=== PATIENT | female | born 1990 | race Caucasian/White ===

== ENCOUNTER 2022-02-15 11:20 | Outpatient (CLI) | payer SELFPAY ==
[~2022-02-15] VITALS: Ht 170.2 cm; Wt 77.8 kg
[2022-02-15] VITALS (26 sets, daily range): BP systolic 114–171; BP diastolic 59–123
[2022-02-15] MEDS ORDERED: ACET325C5 PO (11:56)
[2022-02-15] MEDS ORDERED: VYVA60CA PO (11:56)
[2022-02-15] MEDS ORDERED: PRENTAB9 PO (11:56)
[2022-02-15] MEDS ORDERED: ZOLO25TA PO (11:56)
[2022-02-15 12:33] LABS: HEMATOCRIT 32.1 % (36.0-47.0); HEMOGLOBIN 10.5 g/dl (12.0-15.5); MEAN CORPUSCULAR HEMOGLOBIN 31.3 pg (27.0-33.0); MEAN CORPUSCULAR HGB CONC 32.7 g/dl (32.0-36.5); MEAN CORPUSCULAR VOLUME 95.5 fl (80.0-96.0); PLATELET COUNT, AUTOMATED 253 10^3/uL (150-450); RED BLOOD COUNT 3.36 10^6/uL (4.00-5.40); WHITE BLOOD COUNT 11.6 10^3/uL (4.0-10.0)
[2022-02-15 12:54] LABS: CREATININE,RANDOM URINE 56.7 MG/DL
[2022-02-15 12:55] LABS: ALT/SGPT 20 U/L (12-78); BILIRUBIN,TOTAL 0.1 MG/DL (0.2-1.0); CREATININE FOR GFR 0.65 MG/DL (0.55-1.30); GLOMERULAR FILTRATION RATE > 60.0 (>60); LDH LACTATE DEHYDROGENASE 168 U/L (84-246)
[2022-02-15 12:57] LABS: RSV AMPLIFICATION NEGATIVE (NEGATIVE)
[2022-02-15] MEDS ORDERED: LABETALOL 200 MG TAB PO ONE (14:40)
[2022-02-15] MEDS ORDERED: zolPIDEM TARTRATE 5 MG TAB PO PRN (15:05)
[2022-02-15] MEDS ORDERED: hydrALAZINE 20MG/ML 1ML VIAL (J0360 PER 20MG) IV ONE (15:25)
[2022-02-15] MEDS ORDERED: LR 1,000 ML IV SCH (15:25)
[2022-02-15] MEDS ORDERED: MAG Sulf (OBGYN) 20GM/500ML 20,000 MG in IV 1 EA IV SCH (15:25)
[2022-02-15] MEDS ORDERED: MAG Sulf (L&D) 4 GM/100 ML 4 GM in IV 1 EA IV ONE (15:25)
[2022-02-15] MEDS: hydrALAZINE 20MG/ML 1ML VIAL (J0360 PER 20MG) IV SCH ×2 (15:45→16:05)
[2022-02-15] MEDS ORDERED: CALCIUM GLUCONATE 1,000 MG in D5W MINI-BAG PLUS 100 ML IV PRN (16:00)
[2022-02-15] MEDS ORDERED: ONDANSETRON 4MG/2ML VIAL IV ONE (17:15)
[2022-02-15] MEDS: BETAMETHASONE SOLUSPAN 6MG/ML 5ML VIAL (J0702 PER 3MG) IM SCH (17:15)
[2022-02-15] MEDS ORDERED: ONDANSETRON 4MG/2ML VIAL IV PRN (17:30)
[2022-02-15] MEDS ORDERED: CALCIUM CARBONATE 500 MG CHEW U/D PO ONE (20:20)
[2022-02-15] MEDS: ONDANSETRON 4MG/2ML VIAL IV PRN (22:03)
[2022-02-16] VITALS (13 sets, daily range): BP systolic 110–133; BP diastolic 55–72
[2022-02-16] MEDS: PROMETHAZINE 25MG/ML 1ML VIAL IV PRN ×2 (01:47→12:40)
[2022-02-16] MEDS ORDERED: AMPHETAMINE/DEXTROAMPHETAMINE 5 MG *ER* CAPSULE (ADDERALL XR) PO SCH (09:00)
[2022-02-16] MEDS ORDERED: FLUoxetine 20MG CAP PO SCH (09:00)
[2022-02-16] MEDS ORDERED: ASPIRIN 81MG ENTERIC TABLET PO SCH (09:00)
[2022-02-16] MEDS ORDERED: CALCIUM CARBONATE 500 MG CHEW U/D PO PRN (09:20)
[2022-02-16] MEDS ORDERED: ACETAMINOPHEN 500 MG TAB PO PRN (11:10)
[2022-02-16] MEDS ORDERED: PROMETHAZINE 25 MG TAB PO ONE (12:40)
[2022-02-16] MEDS: ONDANSETRON 4MG/2ML VIAL IV PRN (12:40)
[2022-02-16] MEDS ORDERED: RIZATRIPTAN BENZOATE 10 MG TAB PO ONE (13:00)
[2022-02-16] MEDS ORDERED: FIORICET TAB PO ONE ×2 (15:40→17:20)
[2022-02-16] MEDS: BETAMETHASONE SOLUSPAN 6MG/ML 5ML VIAL (J0702 PER 3MG) IM SCH (17:14)
== END 2022-02-16 18:34 | disposition home or self-care (01) ==
LOC: M LDO 11:20 → UNDOADMOB 11:21 → M LDI 11:21 → UNDODISOB 02-16 18:34
PROVIDERS: ATTEND Advanced Practice Midwife
DX: O26.893 Other specified pregnancy related conditions, third trimester (principal); R03.0 Elevated blood-pressure reading, without diagnosis of hypertension; Z3A.28 28 weeks gestation of pregnancy; O99.343 Other mental disorders complicating pregnancy, third trimester; F32.A Depression, unspecified; F41.9 Anxiety disorder, unspecified; O99.013 Anemia complicating pregnancy, third trimester; D64.9 Anemia, unspecified; F90.9 Attention-deficit hyperactivity disorder, unspecified type; O99.353 Diseases of the nervous system complicating pregnancy, third trimester; G43.909 Migraine, unspecified, not intractable, without status migrainosus; O99.613 Diseases of the digestive system complicating pregnancy, third trimester; K21.9 Gastro-esophageal reflux disease without esophagitis; Z87.59 Personal history of other complications of pregnancy, childbirth and the puerperium; Z20.822 Contact with and (suspected) exposure to COVID-19; O9A.213 Injury, poisoning and certain other consequences of external causes complicating pregnancy, third trimester; T47.4X5A Adverse effect of other laxatives, initial encounter; Z79.899 Other long term (current) drug therapy; Z88.0 Allergy status to penicillin; Z88.1 Allergy status to other antibiotic agents; Z88.8 Allergy status to other drugs, medicaments and biological substances
CPT/HCPCS: 36415; 59025; 76811; 76819; 76820; 82247; 82565; 82570; 83615; 84156; 84450; 84460; 84550; 85027; 87631; 96361; 96365; 96366; G0378; G0463; J0702; J2405; J2550; J3475

== ENCOUNTER 2022-03-29 08:24 | Inpatient (IN) | payer OTHER, SELFPAY ==
[2022-03-29] VITALS (15 sets, daily range): BP systolic 124–151; BP diastolic 78–94
[~2022-03-29] VITALS: Ht 170.2 cm; Wt 82.9 kg
[~2022-03-29 08:24] MED LIST: ACET325C5 PO; PRENTAB9 PO; VYVA60CA PO; ZOLO25TA PO
[2022-03-29] MEDS ORDERED: FIOR1CAP PO (08:49)
[2022-03-29] MEDS ORDERED: diphenhydrAMINE 25MG CAP PO ONE ×2 (08:55→09:50)
[2022-03-29] MEDS ORDERED: PROZ40CA PO (08:55)
[2022-03-29] MEDS ORDERED: ACETAMINOPHEN TAB 650MG DOSE (2X325MG) PO ONE (08:55)
[2022-03-29] MEDS ORDERED: ONDA-83 PO (08:57)
[2022-03-29] MEDS ORDERED: HOME MED LIST COMPLETE! XX SCH (09:00)
[2022-03-29 09:31] LABS: HEMATOCRIT 28.5 % (36.0-47.0); HEMOGLOBIN 9.4 g/dl (12.0-15.5); MEAN CORPUSCULAR HEMOGLOBIN 30.1 pg (27.0-33.0); MEAN CORPUSCULAR VOLUME 91.3 fl (80.0-96.0); PLATELET COUNT, AUTOMATED 207 10^3/uL (150-450); RED BLOOD COUNT 3.12 10^6/uL (4.00-5.40); WHITE BLOOD COUNT 9.3 10^3/uL (4.0-10.0)
[2022-03-29 09:47] LABS: CREATININE,RANDOM URINE 18.1 MG/DL; TOTAL PROTEIN,RANDOM URINE 8.3 MG/DL (0.0-12.0)
[2022-03-29] MEDS ORDERED: METOCLOPRAMIDE 10MG TAB PO ONE (10:00)
[2022-03-29] MEDS ORDERED: CALCIUM CARBONATE 500 MG CHEW U/D PO ONE (10:00)
[2022-03-29 10:02] LABS: ALBUMIN 2.3 GM/DL (3.2-5.2); ALT/SGPT 17 U/L (12-78); BILIRUBIN,DIRECT < 0.1 MG/DL (0.0-0.2); BILIRUBIN,TOTAL 0.1 MG/DL (0.2-1.0); TOTAL PROTEIN 6.2 GM/DL (6.4-8.2)
[2022-03-29] MEDS ORDERED: RIZATRIPTAN MLT 10 MG TAB PO PRN (11:10)
[2022-03-29] MEDS ORDERED: MAG Sulf (L&D) 4 GM/100 ML 4 GM in IV 1 EA IV ONE (12:00)
[2022-03-29] MEDS ORDERED: LIDOCAINE 1% MDV 20ML VIAL INFIL PRN (12:00)
[2022-03-29] MEDS ORDERED: OXYTOCIN DRIP 30 UNITS in IV 1 EA IV PRN (12:00)
[2022-03-29] MEDS ORDERED: ACETAMINOPHEN TAB 650MG DOSE (2X325MG) PO PRN (12:00)
[2022-03-29] MEDS ORDERED: ceFAZolin SOD 2 GM in IV 1 EA IV ONE (12:00)
[2022-03-29] MEDS ORDERED: CALCIUM GLUCONATE 1,000 MG in D5W MINI-BAG PLUS 100 ML IV PRN (12:00)
[2022-03-29] MEDS ORDERED: CARBOPROST TROMETHAMINE 250 MCG/ML AMP IM PRN (12:00)
[2022-03-29] MEDS ORDERED: TRANEXAMIC ACID INJection 1,000 MG in NS 100 ML IV PRN (12:00)
[2022-03-29] MEDS ORDERED: OXYTOCIN DRIP 30 UNITS in IV 1 EA IV SCH (12:00)
[2022-03-29] MEDS: LR 1,000 ML IV SCH (12:42)
[2022-03-29] MEDS: MAG Sulf (OBGYN) 20GM/500ML 20,000 MG in IV 1 EA IV SCH ×2 (12:42→23:24)
[2022-03-29] MEDS: BETAMETHASONE SOLUSPAN 6MG/ML 5ML VIAL (J0702 PER 3MG) IM SCH (12:42)
[2022-03-29] MEDS ORDERED: miSOPROStol 50MCG 1/2 TABLET PO ONE (14:10)
[2022-03-29] MEDS ORDERED: PROMETHAZINE 25MG/ML 1ML VIAL IM ONE (14:25)
[2022-03-29] MEDS ORDERED: BUTORPHANOL 2 MG/ML INJ (J0595) IV ONE ×2 (14:25→17:45)
[2022-03-29] MEDS ORDERED: PROMETHAZINE 25MG/ML 1ML VIAL IV ONE ×2 (14:35→17:45)
[2022-03-29] MEDS ORDERED: miSOPROStol 25MCG 1/4 TABLET PO SCH (20:00)
[2022-03-29] MEDS ORDERED: zolPIDEM TARTRATE 5 MG TAB PO SCH (21:00)
[2022-03-29] MEDS: ONDANSETRON 4MG/2ML VIAL IV PRN (23:24)
[2022-03-30] VITALS (77 sets, daily range): BP systolic 101–150; BP diastolic 51–84
[2022-03-30] MEDS ORDERED: OXYTOCIN DRIP 30 UNITS in IV 1 EA IV SCH ×2 (00:15→17:00)
[2022-03-30] MEDS ORDERED: FENTANYL 2MCG/ML ROPIVACAINE 0.2% IN 0.9% NACL 100ML IVBAG As Ordered ONE (02:31)
[2022-03-30] MEDS ORDERED: LR 500 ML IV PRN (03:50)
[2022-03-30] MEDS ORDERED: diphenhydrAMINE 50MG/ML VIAL (J1200) IV PRN (03:50)
[2022-03-30] MEDS ORDERED: EPIDURAL/PCA KEYS XX PRN (03:50)
[2022-03-30] MEDS ORDERED: ONDANSETRON 4MG/2ML VIAL IV PRN (03:50)
[2022-03-30] MEDS ORDERED: ePHEDrine SULFATE 25 MG/5 ML(5MG/ML) SYRINGE IVP PRN (03:50)
[2022-03-30] MEDS ORDERED: NALOXONE INJ 0.4MG/1ML VIAL (J2310 PER 1MG) IV PRN (03:50)
[2022-03-30] MEDS: ceFAZolin SOD 1 GM in D5W MINI-BAG PLUS 50 ML IV SCH ×2 (03:59→15:06)
[2022-03-30] MEDS: FENTANYL/ROPIVACAINE/NACL BAG 100 ML EPIDURAL SCH ×2 (04:07→12:45)
[2022-03-30] MEDS: LR 1,000 ML IV SCH ×4 (04:08→23:08)
[2022-03-30] MEDS: ONDANSETRON 4MG/2ML VIAL IV PRN ×2 (05:12→11:28)
[2022-03-30] MEDS: MAG Sulf (OBGYN) 20GM/500ML 20,000 MG in IV 1 EA IV SCH (10:53)
[2022-03-30] MEDS: BETAMETHASONE SOLUSPAN 6MG/ML 5ML VIAL (J0702 PER 3MG) IM SCH (13:06)
[2022-03-30] MEDS ORDERED: OXYTOCIN INJ 10 UNITS/ML VIAL (J2590) As Ordered ONE (15:31)
[2022-03-30] MEDS ORDERED: OXYTOCIN INJ 10 UNITS/ML VIAL (J2590) IV ONE (16:00)
[2022-03-30] MEDS ORDERED: MOM 30ML SUSPENSION UDC PO PRN (16:00)
[2022-03-30] MEDS ORDERED: ACETAMINOPHEN TAB 650MG DOSE (2X325MG) PO PRN (16:00)
[2022-03-30] MEDS ORDERED: DIBUCAINE 1% OINTMENT 30GM TOP PRN (16:00)
[2022-03-30] MEDS ORDERED: OXYTOCIN DRIP 30 UNITS in IV 1 EA IV ONE (16:00)
[2022-03-30] MEDS ORDERED: METHYLERGONOVINE MALEATE 0.2 MG TAB PO PRN (16:00)
[2022-03-30] MEDS ORDERED: ANUSOL HC CREAM 30GM TOP PRN (16:00)
[2022-03-30] MEDS ORDERED: RHOGAM 300 MCG (1500 IU) INJ (J2790) IM SCH (16:00)
[2022-03-30] MEDS ORDERED: DOCUSATE SODIUM 100MG CAPSULE PO PRN (16:00)
[2022-03-30 16:10] LABS: CORD GAS ABE V -1.5; CORD GAS HCO3 V 24.9 MEQ/L; CORD GAS O2 SAT V 56.3 %; CORD GAS PCO2 V 47.6 mmHg; CORD GAS PH V 7.336 UNITS; CORD GAS PO2 V 24.1 mmHg; CORD GAS TCO2 V 26.3 MEQ/L
[2022-03-30 16:13] LABS: CORD GAS ABE A -4.8; CORD GAS HCO3 A 22.4 MEQ/L; CORD GAS O2 SAT A 29.3 %; CORD GAS PCO2 A 49.1 mmHg; CORD GAS PH A 7.277 UNITS; CORD GAS PO2 A 14.6 mmHg; CORD GAS SBC A 18.8 MEQ/L; CORD GAS TCO2 A 23.9 MEQ/L
[2022-03-30] MEDS ORDERED: MAG Sulf (OBGYN) 20GM/500ML 20,000 MG in IV 1 EA IV SCH (16:15)
[2022-03-30] MEDS: ACETAMINOPHEN 500 MG TAB PO PRN (18:57)
[2022-03-30 20:10] LABS: HEMATOCRIT 29.1 % (36.0-47.0); HEMOGLOBIN 9.3 g/dl (12.0-15.5); MEAN CORPUSCULAR HEMOGLOBIN 29.3 pg (27.0-33.0); MEAN CORPUSCULAR VOLUME 91.8 fl (80.0-96.0); PLATELET COUNT, AUTOMATED 248 10^3/uL (150-450); RED BLOOD COUNT 3.17 10^6/uL (4.00-5.40); WHITE BLOOD COUNT 16.9 10^3/uL (4.0-10.0)
[2022-03-30 20:41] LABS: ALBUMIN 2.3 GM/DL (3.2-5.2); ALT/SGPT 28 U/L (12-78); BILIRUBIN,TOTAL 0.1 MG/DL (0.2-1.0); BLOOD UREA NITROGEN 9 MG/DL (7-18); CALCIUM LEVEL 6.6 MG/DL (8.5-10.1); CARBON DIOXIDE LEVEL 21 MEQ/L (21-32); CHLORIDE LEVEL 104 MEQ/L (98-107); CREATININE FOR GFR 0.96 MG/DL (0.55-1.30); GLOMERULAR FILTRATION RATE > 60.0 (>60); GLUCOSE, FASTING 218 MG/DL (70-100); POTASSIUM SERUM 3.8 MEQ/L (3.5-5.1); SODIUM LEVEL 137 MEQ/L (136-145); TOTAL PROTEIN 6.2 GM/DL (6.4-8.2)
[2022-03-30] MEDS: zolPIDEM TARTRATE 5 MG TAB PO PRN (21:04)
[2022-03-30] MEDS: IBUPROFEN 600MG TAB PO PRN (21:04)
[2022-03-31] VITALS (11 sets, daily range): BP systolic 99–145; BP diastolic 56–88
[2022-03-31] MEDS: PRENATAL VITAMINS CHEWABLE TABLET PO SCH (07:52)
[2022-03-31] MEDS: ACETAMINOPHEN 500 MG TAB PO PRN ×2 (07:52→16:37)
[2022-03-31 08:17] LABS: HEMATOCRIT 26.1 % (36.0-47.0); HEMOGLOBIN 8.4 g/dl (12.0-15.5); MEAN CORPUSCULAR HEMOGLOBIN 29.4 pg (27.0-33.0); MEAN CORPUSCULAR HGB CONC 32.2 g/dl (32.0-36.5); MEAN CORPUSCULAR VOLUME 91.3 fl (80.0-96.0); PLATELET COUNT, AUTOMATED 221 10^3/uL (150-450); RED BLOOD COUNT 2.86 10^6/uL (4.00-5.40); WHITE BLOOD COUNT 13.6 10^3/uL (4.0-10.0)
[2022-03-31] MEDS: IBUPROFEN 600MG TAB PO PRN ×2 (14:25→20:27)
[2022-03-31] MEDS: zolPIDEM TARTRATE 5 MG TAB PO PRN (20:24)
[2022-04-01 02:00] VITALS: BP 126/63
[2022-04-01 05:35] VITALS: BP 127/62
[2022-04-01] MEDS: PRENATAL VITAMINS CHEWABLE TABLET PO SCH (07:03)
[2022-04-01] MEDS: ACETAMINOPHEN 500 MG TAB PO PRN (07:04)
[2022-04-01] MEDS ORDERED: MEASLES,MUMPS,RUBELLA VACCINE INJ (MMR-II) (90707) SC.IMMUN ONE (09:00)
[2022-04-01 10:00] VITALS: BP 132/71
[2022-04-01 14:00] VITALS: BP 149/66
[2022-04-01 17:30] VITALS: BP 148/82
[2022-04-01] MEDS ORDERED: ACET-683 PO (18:51)
[2022-04-01] MEDS ORDERED: IBUP-1022 PO (18:51)
[2022-04-01] MEDS ORDERED: COLA100C5 PO (18:51)
== END 2022-04-01 20:58 | disposition home or self-care (01) | DRG 807 ==
LOC: M LDO 08:24 → M LDI 12:03 → M OBS 03-31 06:19
PROVIDERS: ADMIT Registered Nurse; ATTEND Obstetrics & Gynecology
PROC: 10E0XZZ Delivery of Products of Conception, External Approach (ICD-10-PCS; principal; 2022-03-29)
PROC: 3E0P7GC Introduction of Other Therapeutic Substance into Female Reproductive, Via Natural or Artificial Opening (ICD-10-PCS; 2022-03-29)
DX: O14.14 Severe pre-eclampsia complicating childbirth (principal); Z37.0 Single live birth; Z3A.34 34 weeks gestation of pregnancy